=== PATIENT | female | born 1955 | race Caucasian/White ===

== ENCOUNTER 2022-03-22 08:00 | Emergency (ER) | payer MEDICARE, MEDICAID ==
[~2022-03-22] VITALS: Ht 149.9 cm; Wt 90.9 kg
[~2022-03-22 08:00] MED LIST: ALPR2TAB2; AMLO10TA55 PO; ASPI-556 PO; ATOR20TA65 PO; CARV6 PO; DIPH25CA85 PO; HYDR-4172 PO; HYDR25TA PO; ISOS30TA92 PO; ITRA100C3 PO; LOSA50TA2 PO; METF-444 PO; NIFE90TA4 PO; PARO10TA89; TRAM50TA4 PO; TRAZ-184
[2022-03-22] MEDS ORDERED: VORT10TA PO (08:21)
[2022-03-22] MEDS ORDERED: VALS160T2 PO (08:21)
[2022-03-22] MEDS ORDERED: ATOR40TA28 PO (08:21)
[2022-03-22 11:00] LABS: COVID AG,FIA SOURCE NASOPHARYNGEAL
[2022-03-22] MEDS ORDERED: DiphenhydrAMINE HCL 25 MG CAPSULE PO ONE (11:00)
[2022-03-22] MEDS ORDERED: GuaiFENesin/D-METHORPHAN [SUGAR-FREE] 200-20MG/10 ML SYRUP UDCUP PO ONE (11:00)
[2022-03-22] MEDS ORDERED: ACETAMINOPHEN/CODEINE 300-30 MG TABLET PO ONE (11:00)
[2022-03-22] MEDS ORDERED: IBUP-1554 PO (11:59)
[2022-03-22] MEDS ORDERED: ACET-2080 PO (11:59)
[2022-03-22] MEDS ORDERED: GUAIFDM PO (11:59)
[2022-03-22 12:45] VITALS: BP 155/87
== END 2022-03-22 12:49 | disposition home or self-care (01) ==
LOC: EMS 08:00
DX: J40 Bronchitis, not specified as acute or chronic (principal); J06.9 Acute upper respiratory infection, unspecified; F41.9 Anxiety disorder, unspecified; F32.9 Major depressive disorder, single episode, unspecified; I10 Essential (primary) hypertension; Z20.822 Contact with and (suspected) exposure to COVID-19; Z79.84 Long term (current) use of oral hypoglycemic drugs
CPT/HCPCS: 99284; Z7502; Z7610